=== PATIENT | female | born 1995 | race Caucasian/White ===

== ENCOUNTER 2017-06-19 11:06 | Emergency (ER) | payer OTHER, BC ==
[~2017-06-19] VITALS: Ht 154.9 cm; Wt 60.0 kg
[~2017-06-19 11:06] MED LIST: ACET325T11 PO; ADDE20XR PO; IBUP400 PO; MICR1TAB PO; SUDA120T3 PO
[2017-06-19 11:08] VITALS: BP 132/80; PULSE 88; RESP 16; TEMP 98.2; O2SAT 99
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
[2017-06-19] MEDS ORDERED: ADDE20XR PO (12:10)
[2017-06-19] MEDS ORDERED: NORE1TAB PO (12:10)
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
[2017-06-19] MEDS ORDERED: MEDR4PAK PO (12:50)
[2017-06-19] MEDS ORDERED: ROBA500T PO (12:50)
== END 2017-06-19 13:12 | disposition home or self-care (01) ==
LOC: NEPD 11:06
DX: S40.012A Contusion of left shoulder, initial encounter (principal); M54.42 Lumbago with sciatica, left side; R51 Headache; M25.512 Pain in left shoulder; M25.552 Pain in left hip; M25.551 Pain in right hip; F98.8 Other specified behavioral and emotional disorders with onset usually occurring in childhood and adolescence; V43.52XA Car driver injured in collision with other type car in traffic accident, initial encounter; Z79.899 Other long term (current) drug therapy
CPT/HCPCS: 72100; 72202; 99284

== ENCOUNTER 2017-06-22 10:24 | Emergency (ER) | payer OTHER, BC ==
[~2017-06-22] VITALS: Ht 154.9 cm; Wt 54.0 kg
[~2017-06-22 10:24] MED LIST changes: -ACET325T11 PO; -IBUP400 PO; +MEDR4PAK PO; -MICR1TAB PO; +NORE1TAB PO; +ROBA500T PO; -SUDA120T3 PO
[2017-06-22 10:35] VITALS: BP 124/84; PULSE 62; RESP 12; TEMP 99.1; O2SAT 97
[2017-06-22] MEDS ORDERED: SODIUM CHLOR 0.9% 1000 ML INJ 1,000 ML IV ONE (11:21)
[2017-06-22] MEDS ORDERED: ONDANSETRON HCL 4 MG/2 ML VIAL IVP ONE (11:30)
[2017-06-22] MEDS ORDERED: SODIUM CHLORIDE 0.9% FLUSH 10 ML FLUSH IVF PRN (11:30)
[2017-06-22] MEDS ORDERED: MECLIZINE HCL 25 MG TAB PO ONE (11:30)
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
[2017-06-22] MEDS ORDERED: CYCL10TA PO (12:55)
[2017-06-22] MEDS ORDERED: IBUP1TAB7 PO (12:55)
[2017-06-22] MEDS ORDERED: MECL-62 PO (12:55)
[2017-06-22] MEDS ORDERED: ZOFR4TAB3 SL (12:55)
== END 2017-06-22 13:24 | disposition home or self-care (01) ==
LOC: NEPE 10:24
DX: R42 Dizziness and giddiness (principal); M54.17 Radiculopathy, lumbosacral region; S39.012A Strain of muscle, fascia and tendon of lower back, initial encounter; M25.552 Pain in left hip; M25.551 Pain in right hip; M54.5 Low back pain; H53.8 Other visual disturbances; R11.2 Nausea with vomiting, unspecified; V43.93XA Unspecified car occupant injured in collision with pick-up truck in traffic accident, initial encounter
CPT/HCPCS: 70450; 72125; 72131; 84703; 96361; 96374; 99285; J2405; J7030